=== PATIENT | female | born 1990 | race Two or more races ===

== ENCOUNTER 2018-01-16 19:29 | Emergency (ER) | payer OTHER ==
--- NOTE | 2018-01-16 20:11 | EDM.PDOC ---
ED HPI GENERAL MEDICAL PROBLEM - General Chief Complaint: Lower Extremity Injury/Pain Stated Complaint: left leg pain Time Seen by Provider: 01/16/18 19:50 Source of Information: Reports: Patient History Limitations: Reports: No Limitations - History of Present Illness INITIAL COMMENTS - FREE TEXT/NARRATIVE: This is a 27-year-old female. She is 32 weeks and she noted some time today she is not absolutely certain that she has a feeling of swelling in her inner thigh on the left side. She says at times when she has her menstrual period she would get some pain in that left upper inner thigh but this is kind of different. She did have a appointment with her OB doctor today but she failed to mention that to him. She thinks it might be more swollen now also she comes to the ER for evaluation. There is no particular pain noted there is no redness noted just a sensation that it is swollen. She denies any fever or chills denies any shortness of breath. She has no history of DVTs. She denies any cold extremity distal to this swollen area and denies any neurovascular deficits. Treatments CUSTOMER CARE MANAGER: Reports: Other (see below) Other Treatments CUSTOMER CARE MANAGER: none Left Upper Leg Pain Score (Numeric/FACES): 4 - Related Data Allergies Allergy/AdvReac Type Severity Reaction Status Date / Time No Known Allergies Allergy Verified 11/22/15 10:25 Home Meds: Home Meds Hydroxyprogesterone 5 gram INJECT WEEKLY 01/16/18 [History] PNV95/Ferrous Fumarate/FA [ Tablet] 1 tab PO DAILY 01/16/18 [History] Past Medical History HEENT History: Reports: Other (See Below) Other HEENT History: corneal abrasion. TAP DANCER History: Reports: - Infectious Disease History Infectious Disease History: Reports: Chicken Pox Social & Family History - Tobacco Use Smoking Status *Q: Never Smoker - Caffeine Use Caffeine Use: Reports: Coffee, Tea - Recreational Drug Use Recreational Drug Use: No - Living Situation & Occupation Living situation: Reports: , with Family Review of Systems - Review of Systems Review Of Systems: See Below Constitutional: Denies: Chills, Fever Eyes: Reports: No Symptoms Ears: Reports: No Symptoms Nose: Reports: No Symptoms Mouth/Throat: Reports: No Symptoms Respiratory: Reports: No Symptoms Cardiovascular: Reports: No Symptoms GI/Abdominal: Reports: Other (32 weeks ) Genitourinary: Reports: No Symptoms Musculoskeletal: Reports: Other (As per history of present illness) Skin: Reports: Other (As per history of present illness) Neurological: Reports: No Symptoms Psychiatric: Reports: No Symptoms ED EXAM, GENERAL - Physical Exam Exam: See Below Exam Limited By: No Limitations General Appearance: Alert, WD/WN, No Apparent Distress Eye Exam: Bilateral Eye: Normal Inspection Ears: Normal External Exam Nose: Normal Inspection Throat/Mouth: Normal Inspection, Normal Lips, Normal Voice, No Airway Compromise Head: Normocephalic Neck: Supple Respiratory/Chest: No Respiratory Distress GI/Abdominal: Other (Gravid uterus at 32 weeks, denies any abdominal tenderness or pain) Back Exam: Full Range of Motion Extremities: Normal Inspection, Normal Range of Motion, Non-Tender, No Pedal Edema, Normal Capillary Refill, Other (When I examined the left inner thigh area I don't see any obvious swelling, I feel no cords or redness or erythema noted, it looks almost exactly like her right inner thigh by visual inspection. With palpation of the left inner thigh I don't feel any lumps or bumps or lymph nodes, she does have a 2+ pedal pulse and a 1+ posterior tibial pulse in that left lower extremity noted, Or refill is less than 2 seconds in all of her toes. ) Neurological: Alert, Oriented Psychiatric: Normal Affect, Normal Mood Skin Exam: Warm, Dry Course - Vital Signs Last Recorded V/S: Last Vital Signs Temp 98.1 F 01/16/18 19:41 Pulse 82 01/16/18 19:41 Resp 20 01/16/18 19:41 BP 112/75 01/16/18 19:41 Pulse Ox 98 01/16/18 19:41 - Orders/Labs/Meds Orders: Active Orders 24 hr Category Date Time Status VL Duplex Lwr Ext Veins Ltd Lt [US] Stat Exams 01/16/18 20:05 Taken - Radiology Interpretation Free Text/Narrative:: Ultrasound of the left lower extremity did not show any DVTs. - Re-Assessments/Exams Free Text/Narrative Re-Assessment/Exam: 01/16/18 21:33 I spoke to the patient regarding the ultrasound results were absolutely normal. I don't know if this sensation of soreness and possible swelling related to the uterus laying on a nerve bundle inside her pelvis or not. I suggested that she lay on her right side not her back or her left side to see if that doesn't use up some of the symptoms that she seems to be experiencing. I also cautioned her that at times if a blood clot is developing her findings by ultrasound to be absolutely normal but after 2-3 days if the symptoms worsen she needs to be rechecked because it might have developed enough to be seen by ultrasound. She understands this. Departure - Departure Time of Disposition: 21:35 Disposition: Home, Self-Care 01 Condition: Good Clinical Impression: Swelling of thigh - Discharge Information Referrals: Antony Zuniga MD [Primary Care Provider] - Forms: ED Department Discharge Additional Instructions: Continue with normal activity, try to lay on your right side and see if the left thigh symptoms don't ease up, don't lay directly on your back either since the uterus might be pressing on some nerves in your pelvis causing your symptoms , if your symptoms worsen or you develop redness in the thigh or more swelling in the thigh you need to be rechecked again because sometimes blood clots take time to develop and you will have symptoms before you can see the blood clots and so you have to be rechecked again by ultrasound if the symptoms progress, follow-up with your OB doctor as needed and return to the ER as needed. - My Orders Last 24 Hours: My Active Orders 01/16/18 20:05 Duplex Lwr Ext Veins Ltd Lt [US] Stat - Assessment/Plan Last 24 Hours: My Active Orders 01/16/18 20:05 Duplex Lwr Ext Veins Ltd Lt [US] Stat
[2018-01-16 23:41] VITALS: BP 112/80
--- NOTE | 2018-01-19 07:29 | US ---
Left lower extremity deep venous ultrasound: Duplex and color flow imaging was obtained of the left common femoral, proximal's greater saphenous, superficial femoral, popliteal, posterior tibial and peroneal veins. Right common femoral vein was also evaluated. Findings: Normal phasic flow, augmentation and compression are seen. Impression: 1. No evidence of deep venous thrombosis within left lower extremity or within the right common femoral vein. Diagnostic code #1 Agree with preliminary report issued by [facility] ([facility] preliminary report dictated on 01/16/18, 10:05 PM Central Time)
== END 2018-01-16 21:45 | disposition home or self-care (01) ==
LOC: JD.ED 19:29
DX: O99.89 Other specified diseases and conditions complicating pregnancy, childbirth and the puerperium (principal); M79.89 Other specified soft tissue disorders; Z79.899 Other long term (current) drug therapy; Z3A.32 32 weeks gestation of pregnancy
CPT/HCPCS: 93971-26-LT; 93971-LT; 99284; 99284-25